=== PATIENT | female | born 1995 | race Caucasian/White ===

== ENCOUNTER 2019-07-04 23:21 | Emergency (ER) | payer BC, SELFPAY ==
[~2019-07-04 23:21] MED LIST: Iopamidol-370 76% 500 ML 1 ML ONE
[2019-07-04] MEDS ORDERED: Ondansetron PF 4 MG/2 ML Vial ONE (23:24)
[2019-07-04] MEDS ORDERED: Morphine 4 MG/ML VIAL ONE (23:24)
[2019-07-04 23:37] LABS: #Basophils 0.1 thou/uL (0.0-0.2); #Eosinphils 0.1 thou/uL (0.0-0.7); #Lymphocytes 1.5 thou/uL (1.20-3.40); #Monocytes 0.4 thou/uL (0.11-0.59); #Neutrophils 5.1 thou/uL (1.40-6.50); %Basophils 0.8 % (0.0-1.0); %Lymphocytes 20.6 % (21.0-51.0); %Neutrophils 71.6 % (42.0-75.0); Hemoglobin 14.9 g/dL (12.0-16.0); Mean Corpuscular HGB CONC 33.7 g/dL (32.0-36.0); Mean Corpuscular Hemoglobin 34.2 pg (27.0-31.0); Mean Platelet Volume 6.1 fL (7.4-10.4); Platelet Count 416 thou/uL (130-400); RBC Distribution Width 11.9 % (11.5-14.5); Red Blood Cell (RBC) Count 4.34 mill/uL (4.20-5.40); White Blood Cell (WBC) Count 7.1 thou/uL (4.8-10.8)
[2019-07-04 23:40] LABS: BHCG - Serum Negative (NEGATIVE); Pregs Control Background? CLEAR/WHITE (CLR/WHITE); Pregs Control Bar Appear? YES (CONTROL BAR)
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
[2019-07-04 23:50] LABS: ALT (SGPT) 14 U/L (8-55); AST (SGOT) 36 U/L (5-34); Albumin 4.5 g/dL (3.5-5.0); Alcohol 236 mg/dL (Less than 10); Alkaline Phosphatase 49 U/L (40-110); Anion Gap 19 mmol/L (10-20); BUN (Urea Nitrogen) 7 mg/dL (7.0-18.7); Bilirubin, Total 0.3 mg/dL (0.2-1.2); Calc. Creatinine Clearance 0 mL/min (70-130); Calcium 9.1 mg/dL (7.8-10.44); Carbon Dioxide 16 mmol/L (22-29); Chloride 110 mmol/L (98-107); Estimated GFR-MDRD 86; Globulin 2.9 g/dL (2.4-3.5); Glucose 132 mg/dL (70-105); Lipase 65 U/L (8-78); Potassium 3.3 mmol/L (3.5-5.1); Protein, Total 7.4 g/dL (6.0-8.3); Sodium 142 mmol/L (136-145)
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
[2019-07-05] MEDS ORDERED: Adacel (T-DAP) 0.5 ML SYRINGE ONE (00:03)
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
[2019-07-05] MEDS ORDERED: Lidocaine 1% w/Epinephrine 1:100K 20 ML VIAL ONE (00:16)
[2019-07-05] MEDS ORDERED: Triple Antibiotic Oint 1 GM Packet ONE (01:03)
== END 2019-07-05 02:35 ==
LOC: ERS 23:21
DX: S82.892A Other fracture of left lower leg, initial encounter for closed fracture (principal); S91.012A Laceration without foreign body, left ankle, initial encounter; S40.212A Abrasion of left shoulder, initial encounter; S70.212A Abrasion, left hip, initial encounter; S80.212A Abrasion, left knee, initial encounter; S80.211A Abrasion, right knee, initial encounter; Z23 Encounter for immunization; V49.9XXA Car occupant (driver) (passenger) injured in unspecified traffic accident, initial encounter
CPT/HCPCS: 12042; 70450; 71260; 72125; 74177; 80053; 80307; 83690; 84703; 85025; 90471; 90715; 96361; 96365; 96375; G0390; J0690; J2270; J2405; Q9967